=== PATIENT | female | born 1985 | race Asian ===

== ENCOUNTER 2017-01-11 00:20 | Inpatient (IN) | payer SELFPAY ==
[~2017-01-11] VITALS: Ht 164 cm; Wt 57.2 kg
[2017-01-11] MEDS ORDERED: LACTATED RINGERS 1,000 ML IV SCH (00:42)
[2017-01-11] MEDS ORDERED: CARBOPROST 250 MCG/ML AMP IM PRN (00:45)
[2017-01-11] MEDS ORDERED: NALBUPHINE 10 MG/ML AMP IVP PRN (00:45)
[2017-01-11] MEDS ORDERED: IBUPROFEN 800 MG TAB PO PRN (00:45)
[2017-01-11] MEDS ORDERED: PROMETHAZINE 25 MG/ML VIAL IVP PRN (00:45)
[2017-01-11] MEDS ORDERED: METHYLERGONOVINE 0.2 MG/ML AMP IM SCH (01:00)
[2017-01-11] MEDS ORDERED: OXYTOCIN 10 UNITS/ML VIAL IM SCH (01:00)
[2017-01-11 01:14] LABS: BASOPHILS # (AUTO) 0.1 K/uL (0.00-0.22); BASOPHILS % (AUTO) 1.5 % (0.0-2.0); EOSINOPHILS # (AUTO) 0.1 K/uL (0-0.4); EOSINOPHILS % (AUTO) 1.4 % (0.0-4.0); HEMATOCRIT 37.5 % (36-48); HEMOGLOBIN 12.3 g/dL (12.0-16.0); LYMPHOCYTES % (AUTO) 28.1 % (20.5-51.1); MEAN CORPUSCULAR HEMOGLOBIN 31 pg (27-31); MEAN CORPUSCULAR HGB CONC 33 g/dL (33-37); MEAN CORPUSCULAR VOLUME 94 fL (80-94); MONOCYTES # (AUTO) 0.6 K/uL (0.8-1.0); MONOCYTES % (AUTO) 8.9 % (1.7-9.3); NEUTROPHILS # (AUTO) 4.4 K/uL (1.8-7.7); NEUTROPHILS % (AUTO) 60.1 % (42.2-75.2); PLATELET COUNT (AUTO) 150 K/uL (140-450); RED BLOOD CELL COUNT(AUTO) 3.98 MIL/uL (4.20-5.40); WHITE BLOOD COUNT (AUTO) 7.2 K/uL (4.8-10.8)
[2017-01-11 01:15] LABS: APPEARANCE,URINE CLEAR (CLEAR); BILIRUBIN,URINE NEGATIVE (NEGATIVE); BLOOD, URINE NEGATIVE (NEGATIVE); COLOR,URINE YELLOW (YELLOW); LEUKOCYTE ESTERASE ,URINE TRACE (NEGATIVE); NITRITE, URINE NEGATIVE (NEGATIVE); UGLUCOSE NEGATIVE (NEGATIVE)
[2017-01-11] MEDS ORDERED: MISOPROSTOL 25 MCG TAB ONE ×2 (01:15→05:41)
[2017-01-11] MEDS: MISOPROSTOL 25 MCG TAB VG SCH ×2 (01:29→05:42)
[2017-01-11 01:35] LABS: ANION GAP 15.2 (8-16); CARBON DIOXIDE 21.5 mmol/L (21-32); CREATININE 0.7 mg/dL (0.6-1.3); POTASSIUM 3.7 mmol/L (3.5-5.1)
[2017-01-11 01:38] VITALS: BP 93/58
[2017-01-11 01:40] LABS: ALBUMIN 2.7 g/dL (3.4-5.0); TOTAL BILIRUBIN 0.4 mg/dL (0.0-1.0)
[2017-01-11 02:01] LABS: RBC,URINE 0-5 (RARE) /HPF (0-5); WBC,URINE 0-5 (RARE) /HPF (0-5)
[2017-01-11] MEDS ORDERED: CITRIC ACID/SODIUM CITRATE 30 ML UDC ONE (05:41)
[2017-01-11] MEDS ORDERED: OXYTOCIN 20 UNITS/LR PREMIX 1,000 ML IV SCH (06:30)
--- NOTE | 2017-01-11 08:07 | NUR ---
PATIENT HAS BEEN SCREENED AND CATEGORIZED LOW NUTRITION RISK. PATIENT WILL BE SEEN WITHIN 7 DAYS OF ADMISSION. 01/17/[address]
[2017-01-11] MEDS ORDERED: ROPIVACAINE 0.2%/NS PREMIX 250 ML EPI ONE (09:48)
[2017-01-11] MEDS ORDERED: OXYTOCIN 20 UNITS/LR PREMIX 1,000 ML IV ONE (10:39)
[2017-01-11] MEDS ORDERED: OXYTOCIN 10 UNITS/ML VIAL ONE (15:17)
[2017-01-11] MEDS ORDERED: MEASLES, MUMPS, AND RUBELLA 1 VIAL SQVAC PRN (20:55)
[2017-01-11] MEDS ORDERED: BENZOCAINE/MENTHOL 20%-0.5% 60 GM CAN TP PRN (20:55)
[2017-01-11] MEDS ORDERED: OXYTOCIN 10 UNITS/ML VIAL IM PRN (20:55)
[2017-01-11] MEDS ORDERED: METHYLERGONOVINE 0.2 MG/ML AMP IM PRN (20:55)
[2017-01-11] MEDS ORDERED: oxyCODONE/APAP 5/325 MG 1 TAB TAB PO PRN (20:55)
[2017-01-11] MEDS ORDERED: WITCH HAZEL 40 PAD PACKAGE TP PRN (20:55)
[2017-01-11] MEDS ORDERED: TEMAZEPAM 15 MG CAP PO PRN (20:55)
[2017-01-11] MEDS ORDERED: DOCUSATE SOD/SENNA 50/8.6 MG 1 TAB PO SCH (21:00)
[2017-01-11] MEDS: IBUPROFEN 800 MG TAB PO PRN (22:08)
[2017-01-12 06:14] LABS: HEMATOCRIT 34.7 % (36-48); HEMOGLOBIN 11.6 g/dL (12.0-16.0)
[2017-01-12] MEDS: HYDROcodone/APAP 5/325 MG 1 TAB TAB PO PRN ×3 (07:08→18:29)
[2017-01-12] MEDS: IBUPROFEN 800 MG TAB PO PRN (22:32)
[2017-01-13] MEDS: IBUPROFEN 800 MG TAB PO PRN ×2 (07:08→13:18)
== END 2017-01-13 16:45 | disposition home or self-care (01) | DRG 775 ==
LOC: MLD 00:20 → MFCC 20:30
PROVIDERS: ADMIT Obstetrics & Gynecology; ATTEND Obstetrics & Gynecology
PROC: 10E0XZZ Delivery of Products of Conception, External Approach (ICD-10-PCS; principal; 2017-01-11)
PROC: 3E0P7GC Introduction of Other Therapeutic Substance into Female Reproductive, Via Natural or Artificial Opening (ICD-10-PCS; 2017-01-11)
PROC: 0W8NXZZ Division of Female Perineum, External Approach (ICD-10-PCS; 2017-01-11)
PROC: 00HU33Z Insertion of Infusion Device into Spinal Canal, Percutaneous Approach (ICD-10-PCS; 2017-01-11)
PROC: 3E0R3CZ (ICD-10-PCS; 2017-01-11)
PROC: 3E0234Z Introduction of Serum, Toxoid and Vaccine into Muscle, Percutaneous Approach (ICD-10-PCS; 2017-01-12)
DX: O80 Encounter for full-term uncomplicated delivery (principal); Z37.0 Single live birth; Z3A.39 39 weeks gestation of pregnancy; Z23 Encounter for immunization; Z90.49 Acquired absence of other specified parts of digestive tract
CPT/HCPCS: 36415; 59200; 59409; 80053; 81001; 85018; 85025; 86592; 86886; 86900; 86901; 90715; J2590; J2795; J7120